=== PATIENT | female | born 1950 | race Caucasian/White ===

== ENCOUNTER 2018-12-31 06:30 | Day surgery (SDC) | payer OTHER ==
[2018-12-30 15:44] LABS: Protime INR 0.99
[2018-12-30 15:54] LABS: Potassium 4.2 mmol/L (3.5-5.1)
[2018-12-30 15:56] LABS: Absolute Lymphocytes (CBC) 1.9 K/uL (0.7-4.9); Basophils % 0.9 % (0-1.3); Lymphocytes % 38.7 % (15.3-44.8); MPV 9.4 fL (7.6-11.3); RBC Red Blood Cell Count 3.82 M/uL (3.86-4.86)
--- NOTE | 2018-12-30 16:00 | RAD REPORT ---
EXAM DESCRIPTION: RAD - Chest Pa And Lat (2 Views) - 12/30/2018 3:10 pm CLINICAL HISTORY: preoppreop chest, pending cardiac catheterization COMPARISON: December 2009 TECHNIQUE: PA and lateral views of the chest were obtained. FINDINGS: The lungs are clear. Lung markings are similar to comparison. Heart size is normal and ce ntral vasculature is within normal limits. No pleural effusion or pneumothorax seen. No acute bony finding noted. No aortic abnormality. IMPRESSION: No acute cardiopulmonary process. Chest is not substantially different from comparison.
[2018-12-31] MEDS ORDERED: LIDOCAINE 1% MPF 30 ML VIAL ONE (06:40)
[2018-12-31] MEDS ORDERED: HEPA 1000U/500MLS 1,000 UNIT/500 ML BAG IV ONE (06:40)
[2018-12-31] MEDS ORDERED: NA CHLORIDE 0.9% 500 ML ONE (06:41)
[2018-12-31] MEDS ORDERED: NA CHLORIDE 0.9% 0 ML ONE (06:41)
[2018-12-31] MEDS ORDERED: ATROPINE SULF 1 MG/10 ML SYR IV ONE (06:41)
[2018-12-31] MEDS ORDERED: FENTANYL CITR 100 MCG/2 ML ONE (07:16)
[2018-12-31] MEDS ORDERED: MIDAZOLAM HCL 2 MG/2 ML INJ ONE ×2 (07:16→07:31)
[2018-12-31] MEDS ORDERED: ONDANSETRON 4 MG/2 ML VIAL ONE ×2 (07:41→09:15)
[2018-12-31 11:55] VITALS: BP 116/52; TEMP 96.8; O2SAT 98
--- NOTE | 2018-12-31 18:57 | OP ---
Date of Procedure: 12/31/2018 Surgeon: Jimy Moreno MD Head Of Business Development: Jaclyn Renteria. Admitted to my service as an outpatient on 12/31/2018. Procedure Performed: The patient was admitted for left heart catheterization and selective coronary arteriogram. Indication: Chest pain and positive stress test in the patient with history of diabetes, cholesterol , and hypertension. Description Of Procedure: She was prepped and draped in the routine sterile fashion. Given Versed a nd fentanyl for sedation. She had some nausea, which was treated with Zofran. A 6-Icelandic sheath int roduced in the right common femoral artery successfully. Angiography there was normal. Angio-Seal w as used to close the case. Ever catheters 6-Icelandic left and right were used to inject the left ma in and the right main respectively. Her RCA was normal, but nondominant and small. Her left main wa s normal. Circumflex was normal. She was left dominant. Her LAD showed moderate diffuse calcificat ion and plaquing in the proximal and mid LAD. No focal stenosis. There were no complications. Blood Loss: 5 cc. Postoperative Diagnosis: Mild coronary artery disease. Plan: Continuing medical therapy. Increase simvastatin. Anesthesia: Total conscious sedation was 30 minutes. RICO/JAN Voice ID: [id number] Report ID: [id number]
== END 2018-12-31 10:44 | disposition home health service (06) ==
LOC: CCL 06:30
DX: I25.110 Atherosclerotic heart disease of native coronary artery with unstable angina pectoris (principal); I10 Essential (primary) hypertension; E11.9 Type 2 diabetes mellitus without complications; E03.9 Hypothyroidism, unspecified; E66.9 Obesity, unspecified; Z68.39 Body mass index [BMI] 39.0-39.9, adult; Z88.3 Allergy status to other anti-infective agents
CPT/HCPCS: 85025; 80048; 36415; 85610; 82947; 85730; 71046; 93454; C1893; C1760; J2250 ×2; J3010; J7040; J2405 ×2; J0583

== ENCOUNTER 2023-03-07 06:54 | Day surgery (SDC) | payer OTHER ==
[2023-03-01 13:19] LABS: Absolute Lymphocytes (CBC) 1.7 K/uL (0.7-4.9); Hematocrit 38.7 % (36.0-45.0); Lymphocytes % 37.6 % (15.3-44.8); MCV 101.8 fL (80-100); MPV 9.4 fL (7.6-11.3); Platelets 136 thou/uL (152-406)
[2023-03-01 13:23] LABS: Protime INR 1.59
[2023-03-01 13:29] LABS: Potassium 3.9 mEq/L (3.5-5.1)
--- NOTE | 2023-03-01 18:55 | RAD REPORT ---
EXAM DESCRIPTION: RAD - Chest Pa And Lat (2 Views) - 03/01/2023 1:33 pm CLINICAL HISTORY: pdre op for surgery. Atrial fibrillation, diabetes. COMPARISON: Chest Pa And Lat (2 Views) dated 12/30/2018; CHEST PA AND LAT 2 VIEW dated 12/24/2009; C HEST PA AND LAT 2 VIEW dated 02/17/2008; CHEST PA AND LAT 2 VIEW dated 01/10/2005 TECHNIQUE: PA and lateral views of the chest were obtained. FINDINGS: The lungs are clear. Heart size is normal and central vasculature is within normal limits. No pleural effusion or pneumothorax seen. No acute bony finding noted. IMPRESSION: No acute cardiopulmonary process.
[2023-03-07] MEDS ORDERED: LIDOCAINE 2% MPF 5 ML VIAL ONE (07:22)
[2023-03-07] MEDS ORDERED: ROCURONIUM 50 MG/5 ML VIAL IV ONE (07:22)
[2023-03-07] MEDS ORDERED: ONDANSETRON 4 MG/2 ML VIAL ONE ×2 (07:22→10:00)
[2023-03-07] MEDS ORDERED: NEOSTIGMINE 1 MG/ML -10 ML VIAL ONE (07:22)
[2023-03-07] MEDS ORDERED: FENTANYL CITR 100 MCG/2 ML ONE (07:22)
[2023-03-07] MEDS ORDERED: propofoL 200 MG/20 ML VIAL IV ONE (07:22)
[2023-03-07] MEDS ORDERED: GLYCOPYRROLATE 0.2 MG/ML SYR ONE (07:22)
[2023-03-07] MEDS ORDERED: MIDAZOLAM HCL 2 MG/2 ML INJ ONE (07:23)
[2023-03-07] MEDS ORDERED: BUPIVACAINE 0.5% PF 10 ML VIAL ONE ×2 (07:33→07:57)
[2023-03-07] MEDS ORDERED: NA CHLORIDE 0.9% 1,000 ML ONE (07:37)
[2023-03-07 07:40] LABS: Protime INR 1.21
[2023-03-07] MEDS ORDERED: CEFAZOLIN SODIUM 1 GM/VIAL ONE (07:51)
--- NOTE | 2023-03-07 09:43 | P.BOP ---
Preoperative diagnosis: umbilical wound drainage, umbilical hernia, ventral hernia Postoperative diagnosis: same, intrabdominal adhesions Primary procedure: 1. Open repair tender umbilical incarcerated hernia Secondary procedure: 2. umbilical wound exploration Estimated blood loss: <10cc Specimen: sac, skin Findings: see dicta Anesthesia: General Complications: None Transferred to: Recovery Room Condition: Good
[2023-03-07] MEDS: HYDROMORPHONE HCL 1 MG/ML INJ ONE ×2 (10:04→10:11)
[2023-03-07] MEDS ORDERED: HYDROMORPHONE HCL 1 MG/ML INJ ONE (10:17)
[2023-03-07] MEDS ORDERED: HYDROCODONE/APAP 5/325 MG TAB ONE (11:03)
[2023-03-07 12:43] VITALS: BP 120/65; TEMP 97; O2SAT 100
--- NOTE | 2023-03-29 12:06 | OP ---
Date of Procedure: 03/07/2023 Surgeon: Navdeep Howell MD Preoperative Diagnoses: Umbilical wound drainage, umbilical hernia, ventral hernia. Postoperative Diagnoses: Umbilical wound drainage, umbilical hernia, ventral hernia, intraabdominal adhesions Procedures: 1.Open repair of tender umbilical incarcerated hernia. 2.Umbilical wound exploration. Estimated Blood Loss: Less than 10 mL. Specimens: Hernia sac and skin. Findings: The patient comes with a drainage coming from the deep of the umbilical region and underne ath there, there is a hernia. That was repaired. The patient also has intraabdominal adhesions to t hat same defect. Anesthesia: General plus local. Complications: None. Indication: This is a case of a female, who comes to us with chronic drainage from the belly button. It never stops and sometimes it develops even to cellulitis, so she was given antibiotics. The darrell inage diminished. Then, we offered her wound exploration since continue months after a month. She u nderstand we might find a mass in that region, we might find a hernia. The benefits, alternatives, a nd risks of wound exploration and repair of possible hernia fully explained, which include, but not l imited to infection, bleeding, damage to adjacent structures, anesthesia complication, recurrence, NM , and . She also had a ventral hernia on the upper side, but we noticed that there are some sec retions or lesions on the umbilical region that will have to be addressed with a hernia. We might no t fix the upper ventral hernia since that may require mesh and it will make a risky for surgery tryin g to put mesh in an area where we also worked in the umbilical region with secretions. She understan ds she is going to have to fix at another time unless we go there we only find a hernia with no secre tions, so she understood the importance of surgery in the future for the ventral region. Description Of Procedure: The patient was brought to the operating room, placed in supine position. Anesthesia was done without complication. Abdominal area was prepped and draped in sterile fashion. Local anesthesia was applied followed by sharp incision of the skin in the infraumbilical region. Incision was carried down. Since this goes, we find the area of the drainage. When we see that open ing, we noticed that leading to the abdominal wall hernia in the umbilical region. On its own, it is contaminated. So at that moment, we decided not to use mesh if possible. We cleaned the fascial ed ges. Noticed some adhesions present on the area, we proceeded to not continue laparoscopically, alth ough we can visualize the ventral region higher up. At this moment, it is not involved and none of i ntestine coming through it, so we are going to leave that for another occasions due to the size that may require mesh use and with this contamination of the umbilical region, I believe it will be wide e nough to spread or contaminate more the intraabdominal cavity. So, fascial edges were cleaned. Adhe sions were removed carefully and then I proceeded to approximate the area with sutures in a figure-of -eight fashion multiple times. The area was irrigated and the skin was then approximated, once again leaving some gap in between to allow any drainage come through. The patient tolerated the procedure well. The patient was sent to recovery room in stable condition. Disposition: Home. Activity: As tolerated. No heavy lifting. Plan: Follow up in my office in 1 week. Call for appointment at [phone]. Continue antibiotics unt il finished and then she is going to have to schedule electively the upper ventral region. At that m oment, we might use mesh and we see some weakness in the umbilical region. We might have to address that issue at the same moment, that will take few months to resolve. We want to make sure that the bacteria in the umbilical region is completely resolved. MADI/JAN Voice ID: [id number] Report ID: [id number]
== END 2023-03-07 12:25 | disposition home or self-care (01) ==
LOC: OR 06:54
PROVIDERS: ATTEND Surgery
PROC: 0WQF0ZZ Repair Abdominal Wall, Open Approach (ICD-10-PCS; principal; 2023-03-07 08:00)
DX: K42.0 Umbilical hernia with obstruction, without gangrene (principal)
CPT/HCPCS: 36415; 71046; 80048; 82947; 85025; 85610; 85730; 88302; J0690; J1170; J2001; J2250; J2405; J2704; J2710; J3010; J7030

== ENCOUNTER 2023-05-09 07:19 | Day surgery (SDC) | payer OTHER ==
[2023-05-07 15:51] LABS: Absolute Lymphocytes (CBC) 1.6 K/uL (0.7-4.9); Hematocrit 37.8 % (36.0-45.0); Lymphocytes % 36.7 % (15.3-44.8); MCV 100.8 fL (80-100); MPV 9.4 fL (7.6-11.3); Platelets 137 thou/uL (152-406); RBC Red Blood Cell Count 3.75 M/uL (3.86-4.86)
[2023-05-07 15:53] LABS: Protime INR 1.46
[2023-05-07 16:07] LABS: Potassium 3.8 mEq/L (3.5-5.1)
[2023-05-09] MEDS ORDERED: LIDOCAINE HCL/EPINEPHRINE 20 ML MDV ONE (07:33)
[2023-05-09] MEDS: NA CHLORIDE 0.9% 1,000 ML ONE (07:50)
[2023-05-09] MEDS ORDERED: KETOROLAC 30 MG/ML INJ ONE (07:52)
[2023-05-09] MEDS ORDERED: ONDANSETRON 4 MG/2 ML VIAL ONE (07:52)
[2023-05-09] MEDS ORDERED: KETAMINE HCL IN 0.9 % NACL 50 MG/5 ML SYRINGE IV ONE (07:52)
[2023-05-09] MEDS ORDERED: dexAMETHasone 4 MG/ML VIAL ONE (07:52)
[2023-05-09] MEDS ORDERED: MIDAZOLAM HCL 2 MG/2 ML INJ ONE (07:53)
[2023-05-09] MEDS ORDERED: propofoL 200 MG/20 ML VIAL IV ONE (07:53)
[2023-05-09] MEDS ORDERED: LIDOCAINE 2% MPF 5 ML VIAL ONE (07:53)
[2023-05-09] MEDS ORDERED: FENTANYL CITR 100 MCG/2 ML ONE (07:53)
[2023-05-09] MEDS: CEFAZOLIN SODIUM 1 GM/VIAL ONE (08:03)
--- NOTE | 2023-05-09 09:11 | P.BOP ---
Preoperative diagnosis: perianal pain , perianal lump/prolapsed thrombosed hemorrhoid Postoperative diagnosis: same Primary procedure: EUA, anoscopy, rigid proctoscopy, Posterior external hemorrhoidectomy Secondary procedure: and excisional biopsy anterior perianal mass Estimated blood loss: <10cc Specimen: perianal lump (anterior), posterior hemorrhoid Findings: see dicta Anesthesia: General Complications: None Drain(s): Other (surgicell) Transferred to: Recovery Room Condition: Good
[2023-05-09 09:19] VITALS: O2SAT 100
[2023-05-09] MEDS: ONDANSETRON 4 MG/2 ML VIAL ONE (09:37)
[2023-05-09] MEDS: CODEINE 30MG/APAP 300MG TAB ONE (10:00)
[2023-05-09 12:13] VITALS: BP 118/71; TEMP 97.2
--- NOTE | 2023-05-09 15:03 | OP ---
Date of Procedure: 05/09/2023 Surgeon: Navdeep Howell MD Preoperative Diagnoses: Perianal pain, perianal lump/prolapsed thrombosed hemorrhoid. Postoperative Diagnoses: Perianal pain, perianal lump/prolapsed thrombosed hemorrhoid. Procedure: Examination under anesthesia, anoscopy, proctoscopy, external hemorrhoidectomy , and excisional biopsy of perianal mass. Estimated Blood Loss: Less than 10 cc. Specimens: Two. There is a perianal lump anterior mass anterior and there is also a posterior prola psed hemorrhoid that was near the areas where the patient had the previous opening. Findings: As above. Anesthesia: General plus local. Packing: Surgicel. Indication: This is the case of a 72-year-old patient who came to us with lesions near the buttocks. It is hard to see in the office, so we offered examination under anesthesia, anoscopy, proctoscopy, possible hemorrhoidectomy, possible fistulectomy, possible fissurectomy, and a biopsy of the mass an d any other indicated procedure based on the examination under anesthesia. The benefits, alternative s, and risks of that procedure were fully explained to the patient which include, but not limited to, infection, bleeding, damage to adjacent structures, anesthesia complication, recurrence, chronic rip n, chronic numbness, anal stricture, anal incontinence, GA, and even . She also understands thi s may not relieve any symptoms. She might need more than one surgical intervention. She understood, signed a consent. Description Of Procedure: Patient was brought to the operating room, placed in supine position. Ane sthesia was given without complication. The patient was placed in lithotomy position with proper pro tection. A time-out was called. Then, after that, we did a rigid proctoscopy trying to see if there is any connection to the rectum. We could not find it up to 15 cm. Anoscope was placed with a wind ow on the side and what we noticed was the patient to have this anterior 11 o'clock perianal mass and this posterior prolapsed thrombosed hemorrhoid. Both of them were the areas that she was mentioning before. So we are going to remove two of them. For the perianal mass around the anterior rectum, shwetha preciado used a wedge incision all the way down to subcutaneous tissue. Mass was excised and closed with th e help of chromic stitches. The patient tolerated that procedure well. Then, after that, we went in to posterior, a thrombosed hemorrhoid prolapse and this was the area near the area of the ulceration that the patient had before and the tenderness compared with other hemorrhoid that she has. This was the one that was friable and bleeds a little bit. So, at that moment, I proceeded to open the anode rm and then the hemorrhoidal plexus from the sphincter and then transected the hemorrhoidal plexus with the help of the Harmonic Scalpel. The area was irrigated. Hemostasis was obtained. Th en, we approximated the anoderm with the help of 3-0 chromic. The patient had some other internal an d external hemorrhoids, at this moment, but they were not causing any thrombosis or any prolapse at t his moment. So we are going to encourage the patient to continue hemorrhoidal care in the future. T he patient tolerated the procedure well. Patient was sent to Recovery in stable condition. Sponge c ounts and instrument counts were correct. We had good hemostasis with the help of the Surgicel. We carried out hemostasis with the help of Surgicel. Local anesthetic was also applied over that area. Patient sent to Recovery in stable condition. MADI/JAN Voice ID: [id number] Report ID: [id number]
--- NOTE | 2023-05-09 15:03 | DS ---
Date of Discharge: 05/09/2023 Diagnoses: Perianal pain, perianal lump, prolapsed thrombosed hemorrhoids. Procedure: Exam under anesthesia, anoscopy, rigid proctoscopy, external hemorrhoidectomy, and excisi onal biopsy of perianal mass. Disposition: Home. Plan: Sitz baths 4 times a day and after every bowel movement. We prescribed the pain medication an d the antibiotics. We advised her not to take the Ultracet that she normally takes with the Vicodin unless she consult that with her Pain Management doctors and the risks of complications. She underst ood. MADI/JAN Voice ID: [id number] Report ID: [id number]
== END 2023-05-09 11:04 | disposition home or self-care (01) ==
LOC: OR 07:19
PROVIDERS: ATTEND Surgery
PROC: 06BY0ZC Excision of Hemorrhoidal Plexus, Open Approach (ICD-10-PCS; 2023-05-09)
PROC: 0DBQ0ZX Excision of Anus, Open Approach, Diagnostic (ICD-10-PCS; 2023-05-09)
PROC: 0DJD8ZZ Inspection of Lower Intestinal Tract, Via Natural or Artificial Opening Endoscopic (ICD-10-PCS; principal; 2023-05-09 09:00)
DX: K64.5 Perianal venous thrombosis (principal); K61.0 Anal abscess; K62.9 Disease of anus and rectum, unspecified; K62.0 Anal polyp; E11.9 Type 2 diabetes mellitus without complications; Z79.4 Long term (current) use of insulin; K21.9 Gastro-esophageal reflux disease without esophagitis; E66.9 Obesity, unspecified; I48.91 Unspecified atrial fibrillation; Z86.718 Personal history of other venous thrombosis and embolism
CPT/HCPCS: 85025; 80048; 36415; 85610; 82947 ×2; 88304; 85730; 45300; 46320; 46922; J2704; J1100; J2001; J3010; J2405 ×2; J7030; J0690; J2250